=== PATIENT | male | born 1945 | race Caucasian/White ===

== ENCOUNTER 2017-11-25 11:16 | Observation (INO) ==
[2017-11-25 12:13] LABS: Basophils # 0.1 K/mcL (0.0-0.2); Eosinophils # 0.1 K/mcL (0.0-0.6); Hemoglobin 14.4 g/dL (12.9-16.9); Immature Granulocytes % 0.4 % (0-4); Lymphocytes # 1.4 K/mcL (0.6-4.6); Lymphocytes % 20.1 %; Mean Corpuscular HGB Conc 34.3 g/dL (31.6-35.5); Mean Corpuscular Hemoglobin 34.4 pg (28.0-33.3); Mean Corpuscular Volume 100.2 fL (83.0-100.0); Mean Platelet Volume 10.1 fL (9.4-12.4); Monocytes # 0.7 K/mcL (0.0-1.3); Monocytes % 10.2 %; Neutrophils # 4.5 K/mcL (1.6-8.9); Platelet Count 243 K/mcL (140-400); Red Blood Count 4.19 M/mcL (4.19-5.50); Red Cell Distribution Width 12.6 % (11.5-14.5); Segmented Neutrophils % 67.3 %
[2017-11-25 12:38] LABS: Troponin I < 0.03 ng/mL (< 0.04)
[2017-11-25] MEDS ORDERED: Aspirin 325 MG TABLET PO ONE (12:39)
[2017-11-25] MEDS ORDERED: Nitroglycerin 0.4 MG TAB.SUBL SL PRN (12:39)
[2017-11-25 12:41] LABS: INR 1.1; Prothrombin Time 11.9 Seconds (9.4-12.1)
--- NOTE | 2017-11-25 12:42 | Emergency Department Note ---
Disposition Clinical Impression: Chest pain Qualifiers: Chest pain type: unspecified Qualified Code(s): R07.9 - Chest pain, unspecified Disposition: Admitted As Inpatient Referrals: NONE,PCP [Primary Care Provider] - Lukasz Leung [Family Provider] - Forms: ED Satisfaction Letter Chest Pain HPI - General Chief Complaint: ED Chest Pain Stated Complaint: "CP last night sent " Time Seen by Provider: 11/25/17 11:23 Source: patient, family Mode of arrival: ambulatory Limitations: no limitations Vital Signs Reviewed: Yes Nursing Notes Reviewed: Yes - History of Present Illness HPI Narrative: 72-year-old male with a history of diabetes, hypertension, ACS status post stents was sent over by the cardiology office for concerns of chest pain. Patient states he develops resting nonexertional chest pain that occurred last night while at the table. describes the patient is grabbing his chest imaging hunched over. Pain lasted approximately 15 minutes. Given aspirin as well as nitroglycerin resolved. Patient denied any nausea or vomiting. No diaphoresis. Denies any abdominal pain. No fevers or cough. Patient states he is on aspirin as well as Plavix. Severity scale (1-10): 0 - Related Data Home Medications Medication Instructions Recorded Confirmed Aspirin [Adult Aspirin] 81 mg PO DAILY 11/25/17 11/25/17 Atorvastatin [Lipitor] 40 mg PO HS 11/25/17 11/25/17 Bupropion HCl [Wellbutrin Xl] 450 mg PO DAILY 11/25/17 11/25/17 Clopidogrel [Plavix] 75 mg PO DAILY 11/25/17 11/25/17 Diltiazem HCl [Diltiazem 24Hr Cd] 240 mg PO DAILY 11/25/17 11/25/17 Gabapentin [Neurontin] 400 mg PO QAM 11/25/17 11/25/17 Gabapentin [Neurontin] 800 mg PO QPM 11/25/17 11/25/17 Isosorbide MONOnitrate (24 HR) 60 mg PO DAILY 11/25/17 11/25/17 [Imdur] Lisinopril [Zestril] 20 mg PO BID 11/25/17 11/25/17 Primidone [Mysoline] 250 mg PO BID 11/25/17 11/25/17 Sertraline [Zoloft] 200 mg PO DAILY 11/25/17 11/25/17 Trazodone HCl 200 mg PO HS 11/25/17 11/25/17 hydroCHLOROthiazide 12.5 mg PO DAILY 11/25/17 11/25/17 [Hydrochlorothiazide] Allergies Allergy/AdvReac Type Severity Reaction Status Date / Time No Known Allergies Allergy Verified 11/25/17 11:50 All systems ED: reviewed and negative except as stated. Constitutional: Denies: fever Cardiovascular: Reports: chest pain Respiratory: Denies: cough, dyspnea Gastrointestinal: Denies: abdominal pain, nausea, vomiting Chest Pain PMH - Past Medical History Medical history: Reports: CVA, hyperlipidemia, hypertension, myocardial infarction Psychiatric history: Reports: depression - Social History Smoking Status: Current every day smoker Alcohol use: Reports: occasionally Drug use: Reports: none Physical Exam - General Limitations: no limitations General appearance: alert, in no apparent distress - Head Head exam: atraumatic, normocephalic, normal inspection - Eye Eye exam: Present: normal appearance, PERRL, EOMI - ENT ENT exam: normal exam, mucous membranes moist - Neck Neck exam: Present: normal inspection - Chest Chest inspection: Present: normal inspection - Respiratory Respiratory exam: Present: normal lung sounds bilaterally - Cardiovascular Cardiovascular exam: Present: regular rate, normal rhythm. Absent: systolic murmur - Abdominal Exam Abdominal exam: Present: soft, Non-Tender. Absent: guarding, rebound - Extremities Exam Extremities exam: Present: normal inspection. Absent: pedal edema - Back Exam Back exam: Present: normal inspection - Neurological Exam Neurological exam: Present: alert, oriented X3 - Skin Skin exam: Present: warm, dry, intact, normal color Course Course Narrative: Patient seen and examined. Patient will get EGD chest pain workup. Disposition likely admission. Denied chest pain currently. Vital Signs Temperature 98.0 F 11/25/17 11:30 Pulse Rate 52 11/25/17 11:30 Respiratory Rate 16 11/25/17 11:30 Blood Pressure 129/72 11/25/17 11:30 O2 Sat by Pulse Oximetry 98 11/25/17 11:30 Temperature 98.0 F 11/25/17 11:45 Pulse Rate 50 11/25/17 13:39 Respiratory Rate 18 11/25/17 13:39 Blood Pressure 129/116 11/25/17 13:39 O2 Sat by Pulse Oximetry 99 11/25/17 13:39 Oxygen Delivery Oxygen Delivery Room Air Chest Pain - MDM Narrative Medical decision making narrative: Patient presented for concerns of chest pain. Sent by cardiology. Patient's chest pain occurred last night. Nonexertional. Concerning history and physical. Patient has negative troponin with 20 minutes of nonexertional chest pain yesterday. No subsequent episodes. Given the patient's history and comorbidities. Patient's heart score is high and will recommend admission for provocative testing. Patient's agreeable with this plan of care. - Lab Data Lab results reviewed: Yes I reviewed the patient's lab results. Result diagrams: 11/25/17 11:56 11/25/17 11:56 Lab Results 11/25/17 11/25/17 11/25/17 Range/Units 11:56 11:56 11:56 WBC 6.8 (4.3-11.1) K/mcL RBC 4.19 (4.19-5.50) M/mcL Hgb 14.4 (12.9-16.9) g/dL Hct 42.0 (37.5-50.1) % MCV 100.2 H (83.0-100.0) fL MCH 34.4 H (28.0-33.3) pg MCHC 34.3 (31.6-35.5) g/dL RDW 12.6 (11.5-14.5) % Plt Count 243 (140-400) K/mcL MPV 10.1 (9.4-12.4) fL Immature Gran % 0.4 (0-4) % Seg Neutrophils % 67.3 % Lymphocytes % 20.1 % Monocytes % 10.2 % Eosinophils % 1.0 % Basophils % 1.0 % Neutrophils # 4.5 (1.6-8.9) K/mcL Lymphocytes # 1.4 (0.6-4.6) K/mcL Monocytes # 0.7 (0.0-1.3) K/mcL Eosinophils # 0.1 (0.0-0.6) K/mcL Basophils # 0.1 (0.0-0.2) K/mcL PT 11.9 (9.4-12.1) Seconds INR 1.1 APTT 33.6 (26.0-36.0) Seconds Sodium (136-145) mEq/L Potassium (3.5-5.1) mEq/L Chloride (98-107) mEq/L Carbon Dioxide (23-29) mEq/L BUN (8-23) mg/dL Creatinine (0.70-1.30) mg/dL Est GFR ( Amer) (> 60) Est GFR (Non-Af Amer) (> 60) BUN/Creatinine Ratio (6-26) Glucose (70-105) mg/dL Calculated Osmolality (280-300) Calcium (8.6-10.3) mg/dL Troponin I (< 0.04) ng/mL B-Natriuretic Peptide 36 (Less than 100) pg/mL 11/25/17 Range/Units 11:56 WBC (4.3-11.1) K/mcL RBC (4.19-5.50) M/mcL Hgb (12.9-16.9) g/dL Hct (37.5-50.1) % MCV (83.0-100.0) fL MCH (28.0-33.3) pg MCHC (31.6-35.5) g/dL RDW (11.5-14.5) % Plt Count (140-400) K/mcL MPV (9.4-12.4) fL Immature Gran % (0-4) % Seg Neutrophils % % Lymphocytes % % Monocytes % % Eosinophils % % Basophils % % Neutrophils # (1.6-8.9) K/mcL Lymphocytes # (0.6-4.6) K/mcL Monocytes # (0.0-1.3) K/mcL Eosinophils # (0.0-0.6) K/mcL Basophils # (0.0-0.2) K/mcL PT (9.4-12.1) Seconds INR APTT (26.0-36.0) Seconds Sodium 133 L (136-145) mEq/L Potassium 4.5 (3.5-5.1) mEq/L Chloride 100 (98-107) mEq/L Carbon Dioxide 29 (23-29) mEq/L BUN 23 (8-23) mg/dL Creatinine 1.15 (0.70-1.30) mg/dL Est GFR ( Amer) > 60 (> 60) Est GFR (Non-Af Amer) > 60 (> 60) BUN/Creatinine Ratio 20 (6-26) Glucose 85 (70-105) mg/dL Calculated Osmolality 279 L (280-300) Calcium 9.6 (8.6-10.3) mg/dL Troponin I < 0.03 (< 0.04) ng/mL B-Natriuretic Peptide (Less than 100) pg/mL - Radiology Data Radiology results reviewed: Yes I reviewed the patient's radiology results. Chest X-Ray 11/25/17 11:41 IMPRESSION: 1. No acute cardiopulmonary disease. D/ / Jc Soliz MD / Jc Soliz MD Interpreting Provider: Jc Soliz MD - EKG Data EKG attestation: Yes I reviewed and interpreted this EKG. EKG shows normal: sinus rhythm Rate: bradycardia Rhythm: NSR [place]/QRS: left axis deviation Interpretation: no acute changes, nonspecific ST-T wave changes Heart Score - Score History: Highly Suspicious EKG: Non Specific repolarisation Disturbance Age: Greater than 65 Risk Factors: Equal/Greater than 3 risk factor or history of atherosclerotic disease Troponin: Less than normal limit HEART Score Total: 7 S.B.ADavid - Deonna.Fernando Situation: Demographics Background: Presenting Complaint Assessment: Vital Signs, Course and respsone to treatment, Patient/Family Expectation Recommendation: Barrier(s) to disposition, Recommendation based on pending studies, treatments, or consults S.BCodieADavid Report Given to: Dr. Donovan Rodriguez Time: 14:11
[2017-11-25 12:44] LABS: Activated Partial Thrombo Time 33.6 Seconds (26.0-36.0)
[2017-11-25 12:47] LABS: Calcium 9.6 mg/dL (8.6-10.3); Carbon Dioxide 29 mEq/L (23-29); Chloride 100 mEq/L (98-107); Glucose 85 mg/dL (70-105); Potassium 4.5 mEq/L (3.5-5.1); Sodium 133 mEq/L (136-145); eGFR For Non-African Americans > 60 (> 60)
--- NOTE | 2017-11-25 13:04 | Emergency Department Note ---
Disposition Clinical Impression: Chest pain Qualifiers: Chest pain type: unspecified Qualified Code(s): R07.9 - Chest pain, unspecified Disposition: Admitted As Inpatient Referrals: NONE,PCP [Primary Care Provider] - Lukasz Leung [Family Provider] - Forms: ED Satisfaction Letter General Adult HPI - General Chief complaint: ED Chest Pain Stated complaint: "CP last night sent " Time Seen by Provider: 11/25/17 11:23 Source: patient, family Mode of arrival: ambulatory Limitations: no limitations - History of Present Illness Pain Scale: 0 - Related Data Home Medications Medication Instructions Recorded Confirmed Aspirin [Adult Aspirin] 81 mg PO DAILY 11/25/17 11/25/17 Atorvastatin [Lipitor] 40 mg PO HS 11/25/17 11/25/17 Bupropion HCl [Wellbutrin Xl] 450 mg PO DAILY 11/25/17 11/25/17 Clopidogrel [Plavix] 75 mg PO DAILY 11/25/17 11/25/17 Diltiazem HCl [Diltiazem 24Hr Cd] 240 mg PO DAILY 11/25/17 11/25/17 Gabapentin [Neurontin] 400 mg PO QAM 11/25/17 11/25/17 Gabapentin [Neurontin] 800 mg PO QPM 11/25/17 11/25/17 Isosorbide MONOnitrate (24 HR) 60 mg PO DAILY 11/25/17 11/25/17 [Imdur] Lisinopril [Zestril] 20 mg PO BID 11/25/17 11/25/17 Primidone [Mysoline] 250 mg PO BID 11/25/17 11/25/17 Sertraline [Zoloft] 200 mg PO DAILY 11/25/17 11/25/17 Trazodone HCl 200 mg PO HS 11/25/17 11/25/17 hydroCHLOROthiazide 12.5 mg PO DAILY 11/25/17 11/25/17 [Hydrochlorothiazide] Allergies Allergy/AdvReac Type Severity Reaction Status Date / Time No Known Allergies Allergy Verified 11/25/17 11:50 Constitutional: Denies: fever Cardiovascular: Reports: chest pain Respiratory: Denies: cough, dyspnea Gastrointestinal: Denies: abdominal pain, nausea, vomiting Past Medical History - Past Medical History Medical history: Reports: CVA, hyperlipidemia, hypertension, myocardial infarction Psychiatric history: Reports: depression - Social History Smoking Status: Current every day smoker Smokeless Tobacco Status: No Alcohol use: Reports: occasionally Drug use: Reports: none Physical Exam - General Limitations: no limitations General appearance: alert, in no apparent distress Course Vital Signs Temperature 98.0 F 11/25/17 11:30 Pulse Rate 52 11/25/17 11:30 Respiratory Rate 16 11/25/17 11:30 Blood Pressure 129/72 11/25/17 11:30 O2 Sat by Pulse Oximetry 98 11/25/17 11:30 Temperature 98.0 F 11/25/17 11:45 Pulse Rate 52 11/25/17 11:45 Respiratory Rate 16 11/25/17 11:45 Blood Pressure 129/72 11/25/17 11:45 O2 Sat by Pulse Oximetry 98 11/25/17 11:45 Oxygen Delivery Oxygen Delivery Room Air Medical Decision Making - Lab Data Result diagrams: 11/25/17 11:56 11/25/17 11:56 Lab Results 11/25/17 11/25/17 11/25/17 Range/Units 11:56 11:56 11:56 WBC 6.8 (4.3-11.1) K/mcL RBC 4.19 (4.19-5.50) M/mcL Hgb 14.4 (12.9-16.9) g/dL Hct 42.0 (37.5-50.1) % MCV 100.2 H (83.0-100.0) fL MCH 34.4 H (28.0-33.3) pg MCHC 34.3 (31.6-35.5) g/dL RDW 12.6 (11.5-14.5) % Plt Count 243 (140-400) K/mcL MPV 10.1 (9.4-12.4) fL Immature Gran % 0.4 (0-4) % Seg Neutrophils % 67.3 % Lymphocytes % 20.1 % Monocytes % 10.2 % Eosinophils % 1.0 % Basophils % 1.0 % Neutrophils # 4.5 (1.6-8.9) K/mcL Lymphocytes # 1.4 (0.6-4.6) K/mcL Monocytes # 0.7 (0.0-1.3) K/mcL Eosinophils # 0.1 (0.0-0.6) K/mcL Basophils # 0.1 (0.0-0.2) K/mcL PT 11.9 (9.4-12.1) Seconds INR 1.1 APTT 33.6 (26.0-36.0) Seconds Sodium (136-145) mEq/L Potassium (3.5-5.1) mEq/L Chloride (98-107) mEq/L Carbon Dioxide (23-29) mEq/L Creatinine (0.70-1.30) mg/dL Est GFR ( Amer) (> 60) Est GFR (Non-Af Amer) (> 60) Glucose (70-105) mg/dL Calcium (8.6-10.3) mg/dL Troponin I (< 0.04) ng/mL B-Natriuretic Peptide 36 (Less than 100) pg/mL 11/25/17 Range/Units 11:56 WBC (4.3-11.1) K/mcL RBC (4.19-5.50) M/mcL Hgb (12.9-16.9) g/dL Hct (37.5-50.1) % MCV (83.0-100.0) fL MCH (28.0-33.3) pg MCHC (31.6-35.5) g/dL RDW (11.5-14.5) % Plt Count (140-400) K/mcL MPV (9.4-12.4) fL Immature Gran % (0-4) % Seg Neutrophils % % Lymphocytes % % Monocytes % % Eosinophils % % Basophils % % Neutrophils # (1.6-8.9) K/mcL Lymphocytes # (0.6-4.6) K/mcL Monocytes # (0.0-1.3) K/mcL Eosinophils # (0.0-0.6) K/mcL Basophils # (0.0-0.2) K/mcL PT (9.4-12.1) Seconds INR APTT (26.0-36.0) Seconds Sodium 133 L (136-145) mEq/L Potassium 4.5 (3.5-5.1) mEq/L Chloride 100 (98-107) mEq/L Carbon Dioxide 29 (23-29) mEq/L Creatinine 1.15 (0.70-1.30) mg/dL Est GFR ( Amer) > 60 (> 60) Est GFR (Non-Af Amer) > 60 (> 60) Glucose 85 (70-105) mg/dL Calcium 9.6 (8.6-10.3) mg/dL Troponin I < 0.03 (< 0.04) ng/mL B-Natriuretic Peptide (Less than 100) pg/mL Attestation Statement - Attestation Attestation: I examined this patient and my medical decision-making was reviewed with the Resident Physician. I agree with the documented findings, disposition and treatment plan as described except to the extent set forth below. 72 year old male presents to the ED with complaints of chest pain and has a histroy fo 2 stents. Patient was being evalute dby his cardiolgost Dr. Johnson and was asked to come to the ED for admission because last night he experienced increased chest pain that was midsternal and assoaited with diaphoresis and states tit was the worst chestpain he had felt since his heart attack. Patinet is curently chest pain free. We will start cardiopulmoary workup and admit to medicine.
[2017-11-25 13:21] LABS: BUN/Creatinine Ratio 20 (6-26); Blood Urea Nitrogen 23 mg/dL (8-23); Osmolality,Calculated 279 (280-300)
[2017-11-25] MEDS ORDERED: Naloxone 0.4 MG/ML INJ IVP PRN (14:56)
[2017-11-25] MEDS ORDERED: traMADol 50 MG TABLET PO PRN (14:56)
[2017-11-25] MEDS ORDERED: Acetaminophen 325 MG TABLET PO PRN (14:56)
--- NOTE | 2017-11-25 15:07 | Internal Med History&Physical ---
<Jesica Alcantar - Last Filed: 11/25/17 15:02> Date of Encounter: 11/25/17 Time of Encounter: 15:02 Internal Medicine - H&P: HPI Chief complaint: chest pain Admitted From: Home Plans for Post Hospital Care: Home History of present illness: Mr. Mc is a 72 year old male with a history of hypertension, HLP, stroke, and ACS status post stents was sent over by the cardiology office for concerns of chest pain. Patient states he develops resting nonexertional chest pain that occurred last night while at the table. Pain was described as crushing, 8- 9/10, located at the midsternal, and non-radiating. describes the patient is grabbing his chest imaging hunched over. Pain lasted approximately 15 minutes. After he received aspirin as well as nitroglycerin, pain resolved. Patient denied any nausea or vomiting. No diaphoresis. Denies any abdominal pain. No fevers or cough. Patient states he is on aspirin as well as Plavix. He had a AL in 2009 and 2 stents were placed. He f/u with Dr. Johnson. At the ED, his R was notably low at 40-50, BP stable, CXR was unremarkable. He will be admitted as observation for further evaluation. Past Med Surg Social Fam HX - Past Medical History Medical history: CVA, hyperlipidemia, hypertension, myocardial infarction Psychiatric history: depression - Past Surgical History Additional surgical history: Heart stents x 2. hemorrhoids - Social History Smoking Status: Current every day smoker Smokeless Tobacco Status: No Alcohol use: occasionally Drug use: none Internal Medicine - H&P: Meds Aspirin [Adult Aspirin] 81 mg PO DAILY 11/25/17 [History] Atorvastatin [Lipitor] 40 mg PO HS 11/25/17 [History] Bupropion HCl [Wellbutrin Xl] 450 mg PO DAILY 11/25/17 [History] Clopidogrel [Plavix] 75 mg PO DAILY 11/25/17 [History] Diltiazem HCl [Diltiazem 24Hr Cd] 240 mg PO DAILY 11/25/17 [History] Gabapentin [Neurontin] 400 mg PO QAM 11/25/17 [History] Gabapentin [Neurontin] 800 mg PO QPM 11/25/17 [History] Isosorbide MONOnitrate (24 HR) [Imdur] 60 mg PO DAILY 11/25/17 [History] Lisinopril [Zestril] 20 mg PO BID 11/25/17 [History] Primidone [Mysoline] 250 mg PO BID 11/25/17 [History] Sertraline [Zoloft] 200 mg PO DAILY 11/25/17 [History] Trazodone HCl 200 mg PO HS 11/25/17 [History] hydroCHLOROthiazide [Hydrochlorothiazide] 12.5 mg PO DAILY 11/25/17 [History] 3 Allergy/AdvReac Type Severity Reaction Status Date / Time No Known Allergies Allergy Verified 11/25/17 11:50 All Systems PM: A 10-system review of systems was performed and is negative for pertinent findings except as documented above in the HPI. Review of systems: REVIEW OF SYSTEMS: CONSTITUTIONAL: No weight loss, fever, chills, weakness or fatigue. HEENT: Eyes: No visual loss, blurred vision, double vision or yellow sclerae. Ears, Nose, Throat: No hearing loss, sneezing, congestion, runny nose or sore throat. SKIN: No rash or itching. CARDIOVASCULAR: see HPI. RESPIRATORY: No shortness of breath, cough or sputum. GASTROINTESTINAL: No anorexia, nausea, vomiting or diarrhea. No abdominal pain or blood. GENITOURINARY: No dysuria, urgency, or frequency. NEUROLOGICAL: No headache, dizziness, syncope, paralysis, ataxia, numbness or tingling in the extremities. No change in bowel or bladder control. MUSCULOSKELETAL: No muscle, back pain, joint pain or stiffness. HEMATOLOGIC: No anemia, bleeding or bruising. LYMPHATICS: No enlarged nodes. No history of splenectomy. PSYCHIATRIC: No history of depression or anxiety. ENDOCRINOLOGIC: No reports of sweating, cold or heat intolerance. No polyuria or polydipsia. - Constitutional Vitals: Temp Pulse Resp BP Pulse Ox 98.0 F 50 18 129/116 99 11/25/17 11:45 11/25/17 13:39 11/25/17 13:39 11/25/17 13:39 11/25/17 13:39 General appearance: Present: cooperative, A&O X 3, answers questions appropriately Exam: PHYSICAL EXAMINATION: GENERAL APPEARANCE: The patient is alert, oriented and in no acute distress. HEENT: Head is normocephalic. The sinuses are nontender. Pupils are equal and reactive. The nares are patent. Oropharynx clear without lesions. NECK: Supple without lymphadenopathy. HEART: Regular rate and rhythm. LUNGS: No crackles or wheezes are heard. ABDOMEN: Soft, nontender, nondistended with good bowel sounds heard. Inguinal area is normal. EXTREMITIES: Without cyanosis, clubbing or edema. NEUROLOGICAL: Gross nonfocal. SKIN: Warm and dry without any rash. Internal Med - H&P Results - Labs CBC & Chem 7: 11/25/17 11:56 11/25/17 11:56 - Assessment and plan (1) Chest pain Current Visit: Yes Status: Acute Assessment and plan: 72-year-old male with history of hypertension, hyperlipidemia, CAD status post stents, and a stroke presented with one episode of chest pain. He had a AL in 2009 with 2 stents placed. He has been taking aspirin and Plavix. He also has a history of stroke, which resulted in left-sided weakness. he is a current smoker. - Given the risk factors, ACS was suspected, patient received 1 dose aspirin at the ED, first set of troponin was negative. - We will continue cycle troponin, telemetry monitoring, EKG as needed. - Pharmacological nuclear stress test in the morning, echocardiogram ordered. - Consult Dr. Johnson. Qualifiers: Chest pain type: unspecified Qualified Code(s): R07.9 - Chest pain, unspecified (2) HTN (hypertension) Current Visit: No Status: Chronic Assessment and plan: BP controlled, continue home medications. Qualifiers: Hypertension type: essential hypertension Qualified Code(s): I10 - Essential (primary) hypertension (3) CAD (coronary artery disease) Current Visit: No Status: Chronic Assessment and plan: Continue home medication including aspirin, Plavix. Qualifiers: Coronary Disease-Associated Artery/Lesion type: lime artery [place] vs. transplanted heart: lime heart Associated angina: angina presence unspecified Qualified Code(s): I25.10 - Atherosclerotic heart disease of [place] coronary artery without angina pectoris (4) Hyperlipidemia Current Visit: No Status: Chronic Assessment and plan: Continue home medication. Lipid panel in the morning. Qualifiers: Hyperlipidemia type: pure hypercholesterolemia Qualified Code(s): E78.00 - Pure hypercholesterolemia, unspecified; E78.0 - Pure hypercholesterolemia (5) Stroke Current Visit: No Status: Chronic Assessment and plan: Continue current treatment, smoking cessation discussed with patient. Qualifiers: CVA mechanism: unspecified Qualified Code(s): I63.9 - Cerebral infarction, unspecified (6) DVT prophylaxis Current Visit: Yes Status: Acute Assessment and plan: Heparin subcutaneous. (7) Smoking Current Visit: No Status: Chronic Assessment and plan: Smoking cessation discussed with patient. - Time Spent With Patient Total time spent is greater than 50% in coordination of care (as documented) at patient's floor/unit and/or counseling patient: Greater than 35 minutes <Mike Man - Last Filed: 11/25/17 18:35> Date of Encounter: 11/25/17 Internal Medicine - H&P: HPI History of present illness: Mr. Mc is a 72 year old male All Systems PM: A 10-system review of systems was performed and is negative for pertinent findings except as documented above in the HPI. - Constitutional Vitals: Temp Pulse Resp BP Pulse Ox 98.0 F 50 18 129/116 99 11/25/17 11:45 11/25/17 13:39 11/25/17 13:39 11/25/17 13:39 11/25/17 13:39 Internal Med - H&P Results - Labs CBC & Chem 7: 11/25/17 11:56 11/25/17 11:56 Labs: Cardiac Enzymes 11/25/17 Range/Units 17:44 Troponin I < 0.03 (< 0.04) ng/mL - Assessment and plan (1) Chest pain Current Visit: Yes Status: Acute Qualifiers: Chest pain type: unspecified Qualified Code(s): R07.9 - Chest pain, unspecified (2) HTN (hypertension) Current Visit: No Status: Chronic Qualifiers: Hypertension type: essential hypertension Qualified Code(s): I10 - Essential (primary) hypertension (3) CAD (coronary artery disease) Current Visit: No Status: Chronic Qualifiers: Coronary Disease-Associated Artery/Lesion type: lime artery [place] vs. transplanted heart: lime heart Associated angina: angina presence unspecified Qualified Code(s): I25.10 - Atherosclerotic heart disease of [place] coronary artery without angina pectoris (4) Hyperlipidemia Current Visit: No Status: Chronic Qualifiers: Hyperlipidemia type: pure hypercholesterolemia Qualified Code(s): E78.00 - Pure hypercholesterolemia, unspecified; E78.0 - Pure hypercholesterolemia (5) Stroke Current Visit: No Status: Chronic Qualifiers: CVA mechanism: unspecified Qualified Code(s): I63.9 - Cerebral infarction, unspecified (6) DVT prophylaxis Current Visit: Yes Status: Acute (7) Smoking Current Visit: No Status: Chronic - Time Spent With Patient Total time spent is greater than 50% in coordination of care (as documented) at patient's floor/unit and/or counseling patient: - Attending Attestation Independently reviewed Agree with plan Cardiology eval Stress test a.m if trops negative X2
[2017-11-25] MEDS: *HR* Heparin 5,000 UNIT/ML VIAL SQ SCH (17:37)
[2017-11-25] MEDS ORDERED: Gabapentin 400 MG CAPSULE PO SCH (18:00)
[2017-11-25] MEDS ORDERED: traZODone 50 MG TABLET PO SCH (21:00)
[2017-11-25] MEDS: Lisinopril 20 MG TABLET PO SCH (22:02)
[2017-11-26 01:19] LABS: Basophils # 0.1 K/mcL (0.0-0.2); Basophils % 0.8 %; Eosinophils # 0.1 K/mcL (0.0-0.6); Eosinophils % 1.5 %; Hematocrit 37.9 % (37.5-50.1); Hemoglobin 13.1 g/dL (12.9-16.9); Immature Granulocytes % 0.3 % (0-4); Lymphocytes # 1.4 K/mcL (0.6-4.6); Lymphocytes % 22.3 %; Mean Corpuscular HGB Conc 34.6 g/dL (31.6-35.5); Mean Corpuscular Hemoglobin 34.1 pg (28.0-33.3); Mean Corpuscular Volume 98.7 fL (83.0-100.0); Mean Platelet Volume 10.8 fL (9.4-12.4); Monocytes # 0.6 K/mcL (0.0-1.3); Monocytes % 10.1 %; Platelet Count 214 K/mcL (140-400); Red Blood Count 3.84 M/mcL (4.19-5.50); Red Cell Distribution Width 12.5 % (11.5-14.5)
[2017-11-26 01:41] LABS: BUN/Creatinine Ratio 21 (6-26); Blood Urea Nitrogen 25 mg/dL (8-23); Calcium 9.1 mg/dL (8.6-10.3); Carbon Dioxide 25 mEq/L (23-29); Chloride 101 mEq/L (98-107); Chol/HDL Ratio 2.1 (0-4.9); Cholesterol 93 mg/dL (< 200); Glucose 80 mg/dL (70-105); HDL Cholesterol 44 mg/dL (40-59); LDL Cholesterol,Calculated 38 mg/dL (0-99); Osmolality,Calculated 281 (280-300); Sodium 134 mEq/L (136-145); Triglycerides 53 mg/dL (< 150); eGFR For Non-African Americans > 60 (> 60)
[2017-11-26] MEDS: *HR* Heparin 5,000 UNIT/ML VIAL SQ SCH (04:35)
[2017-11-26] MEDS ORDERED: Regadenoson 0.4 MG/5 ML SYRINGE IVP ONE (05:55)
--- NOTE | 2017-11-26 08:56 | Electrocardiograph Report ---
[facility] Test Date: 2017-11-25 Pat Name: Carlos Mc Department: [id number] Room: 3B12 Gender: M Perl Developer: : [id number] Requested By: Atif Leon Order Number: [id number] Reading MD: Mic Alves Measurements Intervals [place] Rate: 51 P: 61 ME: 182 QRS: -35 QRSD: 103 T: 39 QT: 436 QTc: 402 Interpretive Statements Sinus rhythm Left axis deviation Electronically Signed On 11-26-2017 8:54:50 EDT by Mic Alves
[2017-11-26] MEDS ORDERED: Gabapentin 400 MG CAPSULE PO SCH ×2 (09:00→21:00)
[2017-11-26] MEDS ORDERED: BuPROPion XL (24 HR) 150 MG TABLET PO SCH (09:00)
[2017-11-26] MEDS ORDERED: hydroCHLOROthiazide 25 MG TABLET PO SCH (09:00)
[2017-11-26] MEDS ORDERED: Aspirin Enteric Coated 81 MG Tablet PO SCH (09:00)
[2017-11-26] MEDS ORDERED: Isosorbide MONOnitrate (24 HR) 60 MG TAB.ER.24H PO SCH (09:00)
[2017-11-26] MEDS: Lisinopril 20 MG TABLET PO SCH (09:50)
[2017-11-26] MEDS: Diltiazem CD (24hr) 240 MG CAPSULE PO SCH ×2 (09:51→18:42)
[2017-11-26] MEDS ORDERED: Heparin 1,000 UNITS/500 mL 500 ML ONE (14:03)
[2017-11-26] MEDS ORDERED: ISOVUE-370 200 ML INFUS..BTL IV ONE (14:03)
[2017-11-26] MEDS ORDERED: *HR* Heparin 10,000 UNIT/10 ML VIAL ONE (14:03)
[2017-11-26] MEDS ORDERED: 0.9 % Sodium Chloride 1,000 ML ONE ×2 (14:04→15:23)
[2017-11-26] MEDS ORDERED: Nitroglycerin 1,000 MCG/10 ML VIAL IV ONE (14:04)
--- NOTE | 2017-11-26 14:49 | Cardiology Consult Note ---
Date of Encounter: 11/26/17 Time of Encounter: 13:30 Assessment and Plan (1) Chest pain Current Visit: Yes Status: Resolved Currrently pain free, with no acute ST T changes on EKG. Pharmaloclogical stress test today reveals small sized apical defect with possible ischemia. Given patients recent history of exertional chest pain and then chest pain at rest, will manage for unstable angina After discussion with the patient and his at the bedside regarding test results and potential benefits and risks of coronary angiogram, he agrees for angiogram this afternoon. He was also counselled that in the event of a PCI being done, he will need to take dual antiplatelet DAILY, as opposed to plavix 75mg thrice weekly that he is taking currently. Qualifiers: Chest pain type: unspecified Qualified Code(s): R07.9 - Chest pain, unspecified (2) CAD (coronary artery disease) Current Visit: No Status: Chronic Continue aspirin 81mg daily, Plavix 75mg daily, Imdur 60mg daily, cardizem 240mg daily, lipitor 40mg daily, lisinopril 20mg daily Qualifiers: Coronary Disease-Associated Artery/Lesion type: [place] artery [place] vs. transplanted heart: [place] heart Associated angina: angina presence unspecified Qualified Code(s): I25.10 - Atherosclerotic heart disease of [place] coronary artery without angina pectoris (3) Bradycardia Current Visit: Yes Status: Acute No symptoms of dizziness or lightheadedness; no palpitations. Recommend reducing dose of Cardizem to 120mg daily Discussion w patient/family: The assessment and plan as outlined above was discussed with the patient and/or family members who expressed understanding and agreement. All questions were answered. Thank you for involving us in the care of your patient. Please call with any questions. History of Present Illness Consult date: 11/26/17 Requesting physician: Mike Man History of present illness: Mr. Mc is a 72 year old pleasant gentleman with a history of hypertension, hyperlipidemia, TIA, CAD s/p PCI in 2009. Most recent coronary angiogram was in 2016 with mid LAD disease ?myocardial bridging presenting with resting nonexertional chest pain that occurred on Saturday night while at the table. Pain was described as crushing, 8-9/10, located at the midsternal, and non- radiating. describes the patient is grabbing his chest imaging hunched over. Pain lasted approximately 15 minutes and resolved after he received aspirin and Imdur per , he had ran out of NTG SL. Patient denied any nausea or vomiting. No diaphoresis. Patient states that he feels chest pain on walking up a flight of stairs. No shortness of breath or palpitations. He follows up with Dr. Nando Johnson at the office, who he called and recommended he comes to the hospital for a stress test. Past Med Surg Social Fam HX - Past Medical History Medical history: CVA, hyperlipidemia, hypertension, myocardial infarction Psychiatric history: depression - Past Surgical History Additional surgical history: Heart stents x 2. hemorrhoids - Social History Smoking Status: Current every day smoker Smokeless Tobacco Status: No Alcohol use: occasionally Drug use: none Medications and Allergies Aspirin [Adult Aspirin] 81 mg PO DAILY 11/25/17 [History] Atorvastatin [Lipitor] 40 mg PO HS 11/25/17 [History] Bupropion HCl [Wellbutrin Xl] 450 mg PO DAILY 11/25/17 [History] Clopidogrel [Plavix] 75 mg PO DAILY 11/25/17 [History] Diltiazem HCl [Diltiazem 24Hr Cd] 240 mg PO DAILY 11/25/17 [History] Gabapentin [Neurontin] 400 mg PO QAM 11/25/17 [History] Gabapentin [Neurontin] 800 mg PO QPM 11/25/17 [History] Isosorbide MONOnitrate (24 HR) [Imdur] 60 mg PO DAILY 11/25/17 [History] Lisinopril [Zestril] 20 mg PO BID 11/25/17 [History] Primidone [Mysoline] 250 mg PO BID 11/25/17 [History] Sertraline [Zoloft] 200 mg PO DAILY 11/25/17 [History] Trazodone HCl 200 mg PO HS 11/25/17 [History] hydroCHLOROthiazide [Hydrochlorothiazide] 12.5 mg PO DAILY 11/25/17 [History] 3 Allergy/AdvReac Type Severity Reaction Status Date / Time No Known Allergies Allergy Verified 11/25/17 11:50 All Systems Review: The remainder of the systems were reviewed and are negative - Constitutional Constitutional: no fever(s), no headache(s), no weakness - EENT Eyes: no blurred vision Nose, mouth and throat: no bleeding gums, no epistaxis - Cardiovascular Cardiovascular: slow heart rate, no claudication, no diaphoresis, no dyspnea on exertion, no irregular heart rhythm, no palpitations, no paroxysmal nocturnal dyspnea - Respiratory Respiratory: no cough, no dyspnea - Gastrointestinal Gastrointestinal: no abdominal pain, no hematemesis, no hematochezia - Genitourinary Genitourinary: no hematuria - Musculoskeletal Musculoskeletal: no abnormal gait - Integumentary Integumentary: unusual bruising - Neurological Neurological: no abnormal speech, no loss of vision, no syncope - Psychiatric Psychiatric: no anxiety Physical Examination Vital Signs, Last 4 Hours Temp Pulse Resp BP Pulse Ox 11/26/17 10:56 98.0 F 44 17 139/72 98 General: Conversant HEENT: Atraumatic Neck: No JVD Cardiac: Reg Rate and Rhythm, Normal S1 and S2, No Murmur Lungs: Normal Breath Sounds Neuro: Alert and responsive Abdomen: Soft Skin: Other Musculoskeletal: No Chest Wall Tenderness Extremities: No Edema (Ecchymosis noted on skin) Results 11/26/17 00:25 11/26/17 00:25 Lab Results 11/25/17 11/26/17 11/26/17 17:44 00:25 00:25 WBC 6.1 Hgb 13.1 Hct 37.9 Plt Count 214 Sodium Potassium Chloride Carbon Dioxide BUN Creatinine Glucose Calcium Troponin I < 0.03 0.03 11/26/17 00:25 WBC Hgb Hct Plt Count Sodium 134 L Potassium 4.0 Chloride 101 Carbon Dioxide 25 BUN 25 H Creatinine 1.18 Glucose 80 Calcium 9.1 Troponin I - EKG Interpretation EKG results cardiology: personally reviewed (Sinus bradycardia; left axis deviation) Consult Discharge Plan - Plan Referrals: NONE,PCP [Primary Care Provider] - Lukasz Leung [Family Provider] -
[2017-11-26] MEDS ORDERED: *HR* FentaNYL (PF) 100 MCG/2 ML VIAL ONE (15:23)
[2017-11-26] MEDS ORDERED: *HR* Midazolam HCl 2 MG/2 ML VIAL ONE (15:23)
--- NOTE | 2017-11-26 15:28 | Pre-Sedation Evaluation ---
Pre-sedation evaluation - Pre-sedation checklist Date of procedure: 11/26/17 Procedure: [facility] Recent Vitals: Last Vital Signs Temp 98.0 F 11/26/17 10:56 Pulse 44 11/26/17 10:56 Resp 17 11/26/17 10:56 BP 139/72 11/26/17 10:56 Pulse Ox 98 11/26/17 10:56 H&P (including ROS) documented in medical record: Yes Previous reaction to sedatives/anesthetics: No Dietary Status: NPO after Midnight Airway Assessment: Patient can open mouth completely, TMJ function normal, Micrognathia (under-bite, receding chin) absent, Neck with adequate range of motion Dentition: No loose teeth or bridges Possible difficult airway: No ASA Classification *see protocol: CLASS II-Mild systemic disease Plan of Care: Pt appropriate candidate for procedure/moderate/conscious sedation , Risks/benefits of procedure/sedation discussed w/ patient/family Cardiac Registry (Cardio Only) - Functional Capacity Functional Capacity: >=4 METS with symptoms - Clincal Frailty Scale Clinical Frailty Scale: Vulnerable
[2017-11-26] MEDS ORDERED: Ibuprofen 600 MG TABLET PO ONE (15:36)
--- NOTE | 2017-11-26 16:14 | Invasive Diagnostic Lab Proc ---
Name: Carlos Mc Date of Study: 11/26/2017 Date: 1945 Ht: 72.0in Medical Record#: [id number] Age: 72 Wt: 179.24lb Gender: Male BSA: 2.03 Order #: [id number] BMI: 24.28 Physicians Procedure Physician: Marilynn Reinoso MD, [facility] Referring MD: Referring MD: Staff Name Position Time In DenaRemi RN Cardiology Nurse Practitioner 03:22 PM Joanne Abraham RT (R) Scrub 03:22 PM Eileen Patterson RT Monitor 03:22 PM Eileen Patterson RT Scrub 03:28 PM Joanne Abraham RT (R) Monitor 03:28 PM Paloma Arrington RN Monitor 03:31 PM Indications Indication Abnormal Test - Stress Procedures Performed Procedure L HRT ARTERY/VENTRICLE ANGIO Pre-Procedure Checklist Informed consent is complete signed and on chart. H&P is on chart. ID band is on and ID verified with patient. Patient NPO for procedure The procedure was described for the patient and questions were answered. Blood Pressure: 139/72 ECG is on chart. Rhythm: Sinus Bradycardia Plan of Care Patient will tolerate the procedure without complications. Adequate level of comfort will be maintained. Hemodynamics will remain stable Patient will recover from procedure without complications. Respiratory function will be maintained. Cardiac rhythm will remain stable. Patient temperature will be maintained. Patient and/or family have verbalized understanding of the procedure. Patient Education Chief Complaint/Reason for Test: Cardiac Cath Developmental Category: Geriatric (65+ years) Developmentally Appropriate for Age: Yes Learning Barriers: None Education Needs: Procedure Education Method: Verbal Information Taught: Cardiac Cath Educational Evaluation: Able to repeat information Intravenous Access Time IV Size Location DC'd Fluid/Drip Rate Units RN 20g 1 1/4" Patent On Arrival Rt Antecubital 0.9NaCl Allergies No Known Allergies Vital Signs Time BP (mmHg) HR (bpm) O2 Sat. RR (bpm) LOC 03:28 PM / % 4 = Oriented but drowsy 03:29 PM / % 4 = Oriented but drowsy 03:30 PM 156 / 76 54 % 14 03:34 PM 122 / 65 49 97 % 13 03:39 PM 124 / 66 48 98 % 15 03:44 PM 133 / 75 57 100 % 15 03:50 PM 124 / 78 57 99 % 18 03:54 PM 125 / 73 50 100 % 12 Procedural Medications Time Medication Dose Units Method Given By 03:28 PM Oxygen 2 L/min nasal cannula Remi Fernandes RN 03:28 PM Versed 2 mg Intravenous Remi Fernandes RN 03:28 PM Fentanyl 50 mcg Intravenous Remi Fernandes RN 03:40 PM Benadryl 25 mg Intravenous Remi Fernandes RN 03:40 PM Lidocaine 2% 19 ml Subcutaneous Marilynn Reinoso MD, [facility] ASA Classification: CLASS II- Mild systemic disease (i.e. well-controlled diabetes, hypertension, asthma, cigarette smoking) Nisa Score Preprocedure Postprocedure Activity 2- Moves 4 extremities sustained head lift Activity 2- Moves 4 extremities sustained head lift Circulation 2- SBP +/= 20 points of pre-anesthetic level Circulation 2- SBP +/= 20 points of pre-anesthetic level Consciousness 2- Awake and alert oriented x 3 Consciousness 2- Awake and alert oriented x 3 O2 Saturation 2- Able to maintain O2 satruation of 92% on room air O2 Saturation 2- Able to maintain O2 satruation of 92% on room air Respiratory 2- Able to deep breathe and cough well Respiratory 2- Able to deep breathe and cough well Total Score 10 Total Score 10 Contrast Agent: Isovue Diagnostic Contrast: 50 ml Total Contrast: 50 ml Fluoro Dose: 2277 mGy Procedure Log Time Note Enter By 03:22 PM Pt arrived to microbiology lab assistant 2 at 15:22 tsites 03:22 PM Remi Fernandes RN Position: Cardiology Nurse Practitioner Time in: 15:22 tsites 03:22 PM Patient charges- Angio tray pack, Navilyst 3mm J, Pulse Oximetry and ACIST tubing and transducer tsites 03:22 PM Physician arrived 15:22 tsites 03:22 PM Meet and greet completed tsites 03:22 PM Sign in performed according to hospital policy. tsites 03:22 PM Procedure start 15:22 tsites 03:27 PM CathStat 03:28 PM Eileen Patterson RT Position: Scrub Time in: 15:28 tsites 03:28 PM Joanne Abraham RT (R) Position: Monitor Time in: 15:28 tsites 03:28 PM Time: 15:28 Oxygen on at 2 L/min per nasal cannula by Remi Fernandes RN tsites 03:28 PM Time: 15:28 Versed 2 mg Intravenous Given by Remi Fernandes RN tsites 03: PM Time: 15:28 Fentanyl 50 mcg Intravenous Given by Remi Fernandes RN ites 03: PM Time: 15:28 Patient comfortable and pain free: Yes tsites 03:29 PM Time: 15:28LOC: 4 = Oriented but drowsy tsites 03:29 PM Vitals capture started with the following parameters, Patient=Adult, Interval=5 min, Initial Wxdyeppy=170 mmHg, Deflation Rate=5 mmHg, Cuff placed on Right Arm 03:30 PM HR=54 bpm, YYLS=701/76 mmhg, Resp=14 B/min 03:30 PM Recorded ECG: HR=51 Condition=Condition 1 03:31 PM Paloma Arrington RN Position: Monitor Time in: 15:31 tsites 03:34 PM HR=49 bpm, QALR=531/65 mmhg, SpO2=97.0 %, Resp=13 B/min, EtCO2=40 mmHg 03:35 PM ASA Class CLASS II- Mild systemic disease (i.e. well-controlled diabetes, hypertension, asthma, cigarette smoking) kmavis 03:35 PM Hair removed from procedure site in procedure lab using clippers. Bilateral groin prepped with Chloraprep by Joanne Abraham (R), then patient was draped. Skin intact. kmavis 03:37 PM Pressure channel 1 zeroed. 03:39 PM HR=48 bpm, HJKC=125/66 mmhg, SpO2=98.0 %, Resp=15 B/min, EtCO2=36 mmHg, Comment=SB 03:40 PM Time out performed according to hospital policy kmavis 03:40 PM Time: 15:40 Benadryl 25 mg Intravenous Given by Reim Fernandes RN kmavis 03:42 PM Time: 15:40 19 ml Lidocaine 2% to right groin Subcutaneous Given by Marilynn Reinoso MD, [facility] kmavis 03:42 PM Access obtained by percutaneous puncture. 5Fr 11cm Terumo Wagoner sheath placed in right Femoral artery. [id number] kmavis 03:43 PM 5Fr FL 4 catheter inserted over the wire [facility] kmavis 03:43 PM 0.035 145cm Navilyst 3mmJ wire [id number] kmavis 03:43 PM LCA angiography performed in multiple views. kmavis 03:44 PM Time: 15:29LOC: 4 = Oriented but drowsy kmavis 03:44 PM Time: 15:28 Patient comfortable and pain free: Yes kmavis 03:44 PM Recorded Pressure: Ao, HR=58, Condition=Condition 1 (Aorta) Ao 117/70/92 03:44 PM HR=57 bpm, USCL=485/75 mmhg, HcQ5=724.0 %, Resp=15 B/min, EtCO2=35 mmHg, Comment=sb 03:45 PM Catheter removed kmavis 03:45 PM 5Fr FR 4 catheter inserted over the wire DN kmavis 03:45 PM RCA angiography performed in multiple views. kmavis 03:46 PM Recorded Pressure: Ao, HR=61, Condition=Condition 1 (Aorta) Ao 112/68/89 03:46 PM Recorded Pressure: Ao, HR=58, Condition=Condition 1 (Aorta) Ao 115/73/92 03:47 PM Catheter removed kmavis 03:47 PM 5Fr Pigtail catheter inserted over the wire [facility] kmavis 03:47 PM Catheter selectively placed in left ventricle kmavis 03:47 PM Bolus angiogram of left Ventricle complete: 8 ml/sec for a total of 24 mls kmavis 03:48 PM Pressure channel 1 zeroed. 03:48 PM Recorded Pressure: LV, HR=60, Condition=Condition 1 (Left Ventricle) LV 120/5/6 03:48 PM Recorded Pressure: LV, Ao, HR=58, Condition=Condition 1 (Left Ventricle) LV 109/3/9, (Aorta) Ao 109/63/86 03:49 PM Catheter removed kmavis 03:50 PM HR=57 bpm, CXAA=543/78 mmhg, SpO2=99.0 %, Resp=18 B/min, EtCO2=37 mmHg, Comment=sb 03:50 PM Bolus angiogram of right Femoral complete: 4 ml/sec for a total of 7 mls kmavis 03:51 PM Procedure completed at 15:51 11/26/2017 kmavis 03:52 PM Sign out completed: Radiation Dose 188.45 mGy, 2277.11 cGy/cm2 Fluoro Time: 1.4 Isovue 370 - 200ml contrast 50 ml given by Marilynn Reinoso MD, [facility]. Complications: NoneCardiac Rehab Consult needed: NoConfirmed administered medications: Yes kmavis 03:52 PM Isovue 370 - 200ml,1 Bottle(s) used. kmavis 03:53 PM Arterial sheath pulled, Mynx closure device used and was Successful [id number] S/N. kmavis 03:53 PM Estimated Blood Loss: minimal kmavis 03:53 PM Post ECG Sinus Bradycardia kmavis 03:53 PM Post Blood Pressure 124/78 kmavis 03:53 PM Information taught Cardiac Cath and Mynx kmavis 03:53 PM Education needs Procedure, Plan of Care, Disease Process, Discharge Instructions, and Responsibilities of Patient in Care kmavis 03:53 PM Learning barriers :None kmavis 03:53 PM Education Methods Verbal kmavis 03:53 PM Education evaluation Able to repeat information kmavis 03:54 PM HR=50 bpm, JIBX=720/73 mmhg, QkK3=171.0 %, Resp=12 B/min 03:55 PM Site status No bleeding/hematoma - Rt Groin as reported by Eileen Patterson RT at 15:55 kmavis 03:55 PM Opsite applied kmavis 03:57 PM Delay to floor No kmavis 03:58 PM Report given to Joselyn PERDUE Pt taken to Holding room Room #12. 15:57 kmavis 03:58 PM Family placed in consult room. kmavis 03:58 PM Complications: None kmavis 03:59 PM Coronary Dominance: Co-dominant kmavis 04:00 PM Lesion found in Mid RCA. Pre Stenosis: 40 Pre MARGARITA Flow: kmavis 04:00 PM Lesion found in Proximal LAD. Pre Stenosis: 30 Pre MARGARITA Flow: kmavis 04:00 PM Lesion found in Mid LAD. Pre Stenosis: 25 Pre MARGARITA Flow: kmavis 04:00 PM Lesion found in Mid Circumflex. Pre Stenosis: 30 Pre MARGARITA Flow: kmavis 04:01 PM Proximal Left Anterior Descending Coronary Artery with 30% stenosis. If graft is supplying this territory, 0 % stenosis. kmavis 04:01 PM Mid/Distal Left Anterior Descending Coronary Artery and diagonal branches with 25% stenosis. If graft is supplying this area, 0 % stenosis kmavis 04:01 PM Circumflex, Obtuse Marginal, Left Posterior Descending, and Left Posterolateral Coronary Arteries with 30 % stenosis. If graft is supplying this area, 0 % stenosis kmavis 04:01 PM Right Coronary, Right Posterior Descending Arteries with Right Posterolateral and Acute Marginal branches with 40 % stenosis. If graft is supplying this area, 0 % stenosis kmavis Complications Complication None None Hemodynamics Pressures Site Systolic/A Wave Diastolic/V Wave Mean AO 117 70 92 AO 112 68 89 AO 115 73 92 LV 120 5 6 LV 109 3 9 AO 109 63 86 Post Procedure Information Blood Pressure: 124/78 mmHg Rhythm: Sinus Bradycardia Post procedural instructions were given Closure Device Time Device Success/Fail 11/26/2017 4:02:00 PM MynxGrip Successful Site Checks Time Location Status Staff Sheath In? Note 03:55 PM Rt Groin No bleeding/hematoma Eileen Patterson RT Pulses Time Site Pre-Procedure Post-Procedure Note Bilateral DP 2+ Bilateral radial 2+ Updated by Keyla Sites, RT (R) on 11/26/2017 4:05:15 PM Keyla Sites, RT electronically signed on 11/26/2017 4:06:01 PM with status of Final
--- NOTE | 2017-11-26 18:28 | Discharge Summary ---
- NOTES TO OUTPATIENT PROVIDER Notes to Outpatient Provider: Patient did undergo cardiac stress test which did not reveal small sized apical defect with possible ischemia cardiology was consulted underwent cardiac catheterization with no PCI he did have some bradycardia Cardizem decreased 120 mg daily he will follow-up with his educator senior clinical Dr. Johnson as outpatient. Orders not resulted at time of discharge: Pending orders 11/25/17 14:56 ECG 12 lead ECG [ECG] Routine 11/25/17 14:59 NM enoc perf SPECT multi [NM] Routine 11/26/17 13:54 CL Cardiac Catheterization [CL] Routine Date of Encounter: 11/26/17 Time of Encounter: 18:26 - Discharge Diagnosis (1) Chest pain Priority: Primary Status: Resolved Qualifiers: Chest pain type: unspecified Qualified Code(s): R07.9 - Chest pain, unspecified (2) HTN (hypertension) Priority: Secondary Status: Chronic Qualifiers: Hypertension type: essential hypertension Qualified Code(s): I10 - Essential (primary) hypertension (3) CAD (coronary artery disease) Priority: Secondary Status: Chronic Qualifiers: Coronary Disease-Associated Artery/Lesion type: [place] artery [place] vs. transplanted heart: [place] heart Associated angina: angina presence unspecified Qualified Code(s): I25.10 - Atherosclerotic heart disease of [place] coronary artery without angina pectoris (4) Hyperlipidemia Priority: Secondary Status: Chronic Qualifiers: Hyperlipidemia type: pure hypercholesterolemia Qualified Code(s): E78.00 - Pure hypercholesterolemia, unspecified; E78.0 - Pure hypercholesterolemia (5) Stroke Priority: Secondary Status: Chronic Qualifiers: CVA mechanism: unspecified Qualified Code(s): I63.9 - Cerebral infarction, unspecified (6) Smoking Priority: Secondary Status: Chronic Hospital course: Mr. Mc is a 72 year old male past medical history of hypertension hyperlipidemia and TIA CAD status post PCI in 2009 most recent coronary angiogram was not thousand 16 with mid LAD disease. Patient presented with resting nonexertional chest pain midsternally nonradiating. Pain lasts approximately 15 minutes and resolved is receiving aspirin and Imdur.-He followed up with Dr. Johnson and his office who recommended he come to the ER for evaluation. Troponins were negative [address]-T wave abnormalities. He did undergo a nuclear stress test which did show a small sized apical defect with possible ischemia. Cardiology was consulted patient underwent heart catheterization with no PCI. He did have bradycardia on presentation he is on Cardizem 240 mg daily. We will reduce dose to 120 daily. Patient will follow up with cardiology as outpatient. I did give patient a prescription for nitroglycerin since he did not have any nitroglycerin at home. Patient verbalized understanding and is hemodynamically stable at this time. Discharge discussed with: patient - Time Spent with Patient Total time spent providing and/or coordinating discharge services: - Discharge Medications Prescriptions: Nitroglycerin 0.4 mg SL Q5MIN PRN #30 tab.subl PRN Reason: Chest Pain Diltiazem HCl [Diltiazem 24Hr Cd] 120 mg PO DAILY #30 cap.er.24h Home Medications: Aspirin [Adult Aspirin] 81 mg PO DAILY 11/25/17 [History] Atorvastatin [Lipitor] 40 mg PO HS 11/25/17 [History] Bupropion HCl [Wellbutrin Xl] 450 mg PO DAILY 11/25/17 [History] Clopidogrel [Plavix] 75 mg PO DAILY 11/25/17 [History] Gabapentin [Neurontin] 400 mg PO QAM 11/25/17 [History] Gabapentin [Neurontin] 800 mg PO QPM 11/25/17 [History] Isosorbide MONOnitrate (24 HR) [Imdur] 60 mg PO DAILY 11/25/17 [History] Lisinopril [Zestril] 20 mg PO BID 11/25/17 [History] Primidone [Mysoline] 250 mg PO BID 11/25/17 [History] Sertraline [Zoloft] 200 mg PO DAILY 11/25/17 [History] Trazodone HCl 200 mg PO HS 11/25/17 [History] hydroCHLOROthiazide [Hydrochlorothiazide] 12.5 mg PO DAILY 11/25/17 [History] Diltiazem HCl [Diltiazem 24Hr Cd] 120 mg PO DAILY #30 cap.er.24h 11/26/17 [Rx] Nitroglycerin 0.4 mg SL Q5MIN PRN #30 tab.subl 11/26/17 [Rx] Allergies/Adverse Reactions: 3 Allergy/AdvReac Type Severity Reaction Status Date / Time No Known Allergies Allergy Verified 11/25/17 11:50 Date of admission: 11/25/17 14:25 Primary care physician: PCP NONE Consults: 11/26/17 12:57 Consult to Cardiology [CONS] Routine Comment: Consulting Provider: Cardiology [place] Reason for Consult: abnormal stress Time Notified: 12:57 Call Completed: Yes Discharging clinician: [place] Villalobos Anticipated date of discharge: 11/26/17 - Constitutional Vitals: Temp Pulse Resp BP Pulse Ox 98.4 F 50 16 142/62 98 11/26/17 16:50 11/26/17 17:30 11/26/17 17:30 11/26/17 17:30 11/26/17 17:30 General appearance: Present: cooperative, A&O X 3, answers questions appropriately Exam: See above - Head Head exam: Present: atraumatic, normocephalic - Eye Eye exam: Present: PERRL, conjuntiva pink, sclera anicteric Pupils: Present: PERRL - Neck Neck exam general surgery: Present: supple, trachea midline. Absent: lymphadenopathy - Respiratory Respiratory exam: Present: CTAB. Absent: accessory muscle use, rales, rhonchi, wheezes - Cardiovascular Cardiovascular exam: Present: RRR, +S1, +S2. Absent: diastolic murmur, gallop, rubs, systolic murmur - GI/Abdominal GI/Abdominal exam: Present: normal bowel sounds, soft, no peritoneal signs. Absent: distended, tenderness - Extremities Exam Extremities exam: Present: warm, radial pulses palpable and symmetrical. Absent : calf tenderness, cyanotic, pedal edema - Neurological Exam Neurological exam: Present: CN II-XII intact, oriented X3, no focal deficits. Absent: pronater drift, facial droop, speech deficit - Skin Skin exam: Present: dry, intact - Patient Status Disposition: Home, Self-Care Condition: Good Functional capacity at discharge: independent ambulation Overall status at discharge: patient is back to baseline - Discharge Instructions Instructions: Chest Pain (DC) Follow Up With: Nando Johnson DO [Partnered Physician] - (an appointment has been requested. Please contact patient at home to schedule an appointment. ) NONE,PCP [Primary Care Provider] - Lukasz Leung [Family Provider] - Additional Instructions: RISK FACTORS: STOP SMOKING: If you smoke, STOP. Smoking or tobacco use significantly increases your risk of heart disease because nicotine causes the arteries to narrow or constrict. It also causes fats to stick to the artery. Your chances of having a heart attack are greatly increased if you continue to smoke. For more information, call the education line for smoking cessation 3-512-UBSTZBC EAT A LOW FAT/CHOLESTEROL/SODIUM DIET: This diet may help reduce your chances of having a heart attack. LIFTING: Avoid lifting anything more than 10 pounds for 5-7 days Prior to straining, laughing, sneezing and/or coughing, apply manual pressure directly over insertion site. ACTIVITY: You may walk or climb stairs as tolerated You can resume sexual activity as tolerated In general, you are encouraged to engage in a minimum of 30 minutes or more of moderate intensity physical activity, such as brisk walking, daily or at least 3 -4 times weekly BATHING Do not submerge the site into water (bath tub, hot tub, swimming pool) for 1 week. This can be a source for infection into the blood stream. You may shower after 24 hours SITE CARE: After 24 hours, you may remove the dressing and leave the site open to air. Keep the site clean and dry. Clean gently and pat dry. You can expect bruising and tenderness that gradually resolve within a week or two. Return to work as instructed per your physician Resume driving as instructed per physician Keep all scheduled follow up appointments Resume medications as instructed IMPORTANT: If prescribed a Platelet Aggregation Inhibitor such as, Plavix, Brilinta or Effient: Duration of therapy is minimum one year These medications are often used in combination with Aspirin in prevention of future heart attacks Never discontinue unless consult with your Concrete Analyst STROKE (CVA) Risk factors for a stroke are: Age, cigarette smoking, diabetes, excessive alcohol consumption, family history, high blood pressure, overweight, physical inactivity, prior stroke, heart attack, diagnosis of carotid artery stenosis or other artery disease. Warning signs: Sudden numbness or weakness of the face, arm or leg; especially on one side of the body, sudden confusion, trouble speaking or understanding, sudden trouble seeing in one or both eyes, sudden trouble walking, dizziness, loss of balance or coordination, sudden severe headache with no cause. Call 911 or go to the Emergency Room. CONGESTIVE HEART FAILURE: If you have been diagnosed with Congestive Heart Failure (CHF) and your symptoms return, make an appointment with your physician Weigh yourself daily. Notify your physician if you have a weight gain of two or more pounds in one day or five or more pounds in one week. If you experience any difficulty breathing, please call 911 BLEEDING: Although the risk of bleeding is minimal, it can happen. If you have any bleeding from the site, apply firm pressure above the puncture site for 10-15 minutes. If the bleeding does not stop, continue manual pressure and call 911 Contact your physician if: You develop a fever greater than 101 degrees Fahrenheit Your site becomes reddened or has any drainage You have an increase in pain or burning at the site or if a large knot forms at the site. If you experience chest pain, shortness of breath, dizziness, or extreme tiredness, stop the activity and rest. Please notify your physicians office if you experience any of these symptoms and they are not relieved by rest please call 911! - Diet and Activity Activity: increase activity as tolerated Diet: low fat, low cholesterol
[2017-11-26 18:42] VITALS: BP 134/64
== END 2017-11-26 19:20 | disposition home or self-care (01) ==
LOC: 3BNU 11:16 → EMEROOARM 11:16 → 3BNU 14:55
PROVIDERS: ADMIT Student in an Organized Health Care Education/Training Program; ATTEND Internal Medicine